=== PATIENT | female | born 1970 | race Caucasian/White ===

== ENCOUNTER → 2017-04-02 | Outpatient (CLI) | payer OTHER | LOC: BMCIMAGING 15:52 | PROVIDERS: ATTEND Orthopaedic Surgery Orthopaedic Surgery of the Spine | DX: M89.38 Hypertrophy of bone, other site (principal); M48.06 Spinal stenosis, lumbar region ==

== ENCOUNTER 2017-04-12 08:27 | Day surgery (SDC) | payer OTHER ==
--- NOTE | 2017-04-11 14:00 | GHP ---
[f rep st] PREOP HISTORY AND PHYSICAL DATE OF ADMISSION: 04/12/2017 HISTORY OF PRESENT ILLNESS: The patient is a pleasant 46-year-old woman referred to me for a gradua l onset of right lower extremity pain that began in September of this year. The pain mainly radiates from her right buttock to the right lateral leg, and then to the lateral right. She also has pares thesias in the same distribution. Flexion as well as Valsalva-type of maneuvers typically worsen he r symptoms. 100% of her pain is referable to the right lower extremity. On a visual analog scale o f 1 to 10, she rates her daily pain a 2 to a 6. The patient denies any loss of bowel or bladder con trol. Treatments have included an epidural steroid injection, Medrol Dosepak, anti-inflammatories, physical therapy, and traction. SOCIAL HISTORY: Negative for tobacco and positive for social use of alcohol. 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 FAMILY HISTORY: Negative. PAST MEDICAL HISTORY: The patient has partial complex seizures, Graves disease, causing hypothyroid ism, and asthma. PAST SURGICAL HISTORY: Exploratory laparotomy for ectopic pregnancies, bilateral salpingectomies, a nd LASIK surgery. ALLERGIES TO MEDICATIONS: Iodine contrast. MEDICATIONS: Synthroid, Dulera, Lamictal. PHYSICAL EXAM: GENERAL: Patient is 5 feet 2 inches tall, and weighs 130 pounds. She is alert and oriented x3. NEUROLOGIC: Shows strength of bilateral lower extremities to be 5/5 throughout. Light touch is dim inished in the right lateral leg and lateral foot. Patellar reflexes are bilaterally 3/4. Achilles reflexes are bilaterally 2/4. Straight-leg raising is positive on the right and negative on the le ft. She is tender to palpation slightly to the right of midline at L4-5 and L5-S1, as well as in th e right sciatic notch. RADIOGRAPHIC STUDIES: MRI of the lumbar spine shows minimal degenerative disk disease at L3-4. At L4-5, she has moderate degenerative disk disease, with modic vertebral endplate changes, and a centr al disk herniation causing stenosis. At L5-S1, she has a central annular tear. IMPRESSIONS: 1. Central and right L4-5 disk herniation, with moderate central stenosis. 2. Right L5 radiculopathy. 3. Right S1 radiculitis. PLAN: The patient will undergo a right L4-5 microdiskectomy. Potential risks, benefits, possible c omplications have been thoroughly discussed with the patient including, but not limited to, dural te ar with CSF leak, meningitis, nerve root injury, partial or complete paralysis, infection, recurrent disk herniation, need for further surgery including a fusion, loss of bowel or bladder control, DVT , PE, pneumonia, stroke, heart attack, hemorrhage, blindness, and . Patient's questions have b een answered thoroughly. She will be n.p.o. after midnight tonight. Surgery will be performed as a n outpatient procedure. Copy requested to: Pre-Surgery Testing /[id number]/MODL
[~2017-04-12 08:27] MED LIST: ceFAZolin 2 GM/DEXTROSE 100 ML IV ONE
[2017-04-12] MEDS ORDERED: LR 1,000 ML IV ONE (08:47)
[2017-04-12 08:57] VITALS: PULSE 67
[2017-04-12] MEDS ORDERED: THROMBIN (BOVINE) 20,000 UNIT VIAL TP ONE (09:06)
[2017-04-12] MEDS ORDERED: THROMBIN (BOVINE) 5,000 UNIT VIAL TP ONE (09:06)
[2017-04-12] MEDS ORDERED: BACITRACIN 50,000 UNITS/10 ML SYR IRR ONE (09:06)
[2017-04-12] MEDS ORDERED: DEXAMETHASONE 10 MG/ML VIAL ONE (09:06)
[2017-04-12] MEDS ORDERED: methylPREDNISolone SOD SUCC 125 MG/2 ML VIAL ONE (09:06)
[2017-04-12] MEDS ORDERED: BUPIVACAINE/EPI 0.25% 30 ML SDV ONE (09:06)
[2017-04-12] MEDS ORDERED: LIDOCAINE 1% 2 ML INJ ID PRN (09:44)
[2017-04-12] MEDS ORDERED: LIDOCAINE 1% 2 ML INJ ONE (09:45)
[2017-04-12] MEDS ORDERED: MIDAZOLAM 2 MG/2 ML VIAL IVP ONE (09:53)
[2017-04-12] MEDS ORDERED: MIDAZOLAM 2 MG/2 ML VIAL ONE (09:54)
--- NOTE | 2017-04-12 09:55 | PDHPUP ---
History & Physical Update H&P update statement: This history and physical update is based on an assessment of the patient which was completed after admission or registration (within 24 hours), but prior to the surgery/procedure. H&P update: H&P reviewed & patient examined, no change in patient's condition since H&P completed
--- NOTE | 2017-04-12 09:58 | PDANEPAE ---
ANE History of Present Illness Microdiscectomy right 4to 5 ANE Past Medical History - Cardiovascular History Hx Hypertension: No Hx Arrhythmias: No Hx Chest Pain: No Hx Coronary Artery / Peripheral Vascular Disease: No Hx CHF / Valvular Disease: No Hx Palpitations: No - Pulmonary History Hx COPD: No Hx Asthma/Reactive Airway Disease: Yes Hx Recent Upper Respiratory Infection: No Hx Oxygen in Use at Home: No Hx Sleep Apnea: No Sleep Apnea Screening Result - Last Documented: Negative Pulmonary History Comment: uses Dulera inhaler for asthma-rare use of Albuterol. - Neurologic History Hx Cerebrovascular Accident: No Hx Seizures: Yes Hx Dementia: No Neurologic History Comment: partial complex seizures- well controlled w/ Lamictal - Endocrine History Hx Diabetes: No Hypothyroid: No Hyperthyroid: No Endocrine History Comment: hypothyroid - Renal History Hx Renal Disorders: No - Liver History Hx Hepatic Disorders: No - Neurological & Psychiatric Hx Hx Neurological and Psychiatric Disorders: Yes Neurological / Psychiatric History Comment: R low back pain w/pain, numbness, tingling radiating down outside of R leg - Cancer History Hx Cancer: No - Congenital Disorder History Hx Congenital Disorders: No - GI History Hx Gastrointestinal Disorders: Yes Gastrointestinal History Comment: gluten intollerant due to Celiac disease. - Chronic Pain History Chronic Pain: Yes (back/R leg) - Surgical History Prior Surgeries: explor lap x2 - 2000,2001 ANE Review of Systems - Exercise capacity METS (RN): 4 METS ANE Patient History - Allergies Allergies/Adverse Reactions: gluten Allergy (Verified 04/04/17 15:56) Other-Enter Comments Iodinated Contrast- Oral and IV Dye Allergy (Verified 04/04/17 15:55) Hives - Home Medications Home Medications: Dulera 100 Mcg/5 Mcg Inhaler 04/04/17 [Last Taken 04/12/17 06:30] LaMICtal 04/04/17 [Last Taken 04/12/17 06:30] Synthroid 04/04/17 [Last Taken 04/12/17 06:30] - NPO status NPO Since - Liquids (Date): 04/12/17 NPO Since - Liquids (Time): 06:00 NPO Since - Solids (Date): 04/11/17 NPO Since - Solids (Time): 19:00 - Anes Hx Anes Hx: no prior problems - Smoking Hx Smoking Status: Never smoked - Alcohol Use Alcohol Use: Occasionally - Family Anes Hx Family Anes Hx: none ANE Labs/Vital Signs - Vital Signs Blood Pressure: 127/67 Heart Rate: 67 Respiratory Rate: 16 O2 Sat (%): 96 Height: 153.67 cm Weight: 58.967 kg ANE Physical Exam - Airway Mallampati Score: Class 1 Mouth exam: normal dental/mouth exam - Pulmonary Pulmonary: no respiratory distress - Cardiovascular Cardiovascular: regular rate and rhythym - ASA Status ASA Status: II ANE Anesthesia Plan Anesthesia Plan: general endotracheal anesthesia
[2017-04-12] MEDS ORDERED: HYDROmorphONE/DILAUDID 2 MG/ML INJ ONE (10:03)
[2017-04-12] MEDS ORDERED: fentaNYL 100 MCG/2 ML INJ ONE ×3 (10:04→12:18)
[2017-04-12] MEDS ORDERED: PROPOFOL/EMULSION 500 MG/50 ML BOTTLE IV ONE (10:04)
[2017-04-12] MEDS ORDERED: PROPOFOL 200 MG/20 ML VIAL ONE (10:04)
[2017-04-12] MEDS ORDERED: diphenhydrAMINE 25 MG CAP PO PRN (10:14)
[2017-04-12] MEDS ORDERED: oxyCODONE IR 5 MG TAB PO PRN (10:14)
[2017-04-12] MEDS ORDERED: ONDANSETRON DISINTEGRATING 4 MG TAB PO PRN (10:14)
[2017-04-12] MEDS ORDERED: ONDANSETRON 4 MG/2 ML VIAL IVP PRN ×2 (10:14→11:24)
[2017-04-12] MEDS ORDERED: NS 1,000 ML IV SCH (10:15)
[2017-04-12] MEDS ORDERED: HYDROmorphONE/DILAUDID 1 MG/ML SYR IVP PRN ×2 (10:19→11:24)
[2017-04-12] MEDS ORDERED: HYDROCODONE/APAP 5/325 TAB PO PRN (10:19)
[2017-04-12] MEDS ORDERED: ROCURONIUM 50 MG/5 ML VIAL ONE (10:43)
[2017-04-12] MEDS ORDERED: DEXAMETHASONE 4 MG/ML VIAL ONE ×3 (10:43)
[2017-04-12] MEDS ORDERED: GLYCOPYRROLATE 0.2 MG/1 ML VIAL ONE (10:44)
[2017-04-12] MEDS ORDERED: MEPERIDINE 25 MG/ML SYR IVP PRN (11:24)
[2017-04-12] MEDS ORDERED: NALOXONE HCL 0.4 MG/ML INJ IVP PRN (11:24)
[2017-04-12] MEDS ORDERED: D5W LR 500 ML IV PRN (11:24)
[2017-04-12] MEDS ORDERED: ONDANSETRON 4 MG/2 ML VIAL ONE (11:29)
--- NOTE | 2017-04-12 11:41 | POSTOPPROG ---
Post Op Note Date of Operation: 04/12/17 Surgeon: Francesca Cruz Cold Patcher: Chloé Mathews SA Anesthesiologist: MD Adonis Anesthesia: GET(General Endotracheal) Pre-op Diagnosis: Right L4-5 HNP and sciatica Post-op Diagnosis: same Indication: RLE pain Procedure: Right L4-5 microdiscectomy Findings: sequestered R/central L4-5 HNP Inf/Abcess present in the surg proc area at time of surgery?: No Depth: Deep Incisional (Fascial) EBL: 10 cc Complications: None. No permanent changes in SSEPs and EMGs
[2017-04-12] MEDS: fentaNYL 100 MCG/2 ML INJ IVP PRN ×2 (12:26→12:34)
[2017-04-12 12:53] VITALS: TEMP 96.8
[2017-04-12] MEDS ORDERED: ACETAMINOPHEN 500 MG TAB PO SCH (14:00)
[2017-04-12 14:20] VITALS: BP 96/57; RESP 13; O2SAT 100
--- NOTE | 2017-04-13 14:55 | POSTANESTH ---
Post Anesthetic Evaluation Cardiovascular Status: Normal, Stable Respiratory Status: Normal, Stable Level of Consciousness/Mental Status: Can Participate in Eval Pain Control: Adequate, Prn Tx Ordered Nausea/Vomiting Control: Adequate, Prn Tx Ordered Complications Possibly Related to Anesthesia: None Noted
--- NOTE | 2017-04-14 20:25 | GOP ---
[f rep st] OPERATIVE REPORT DATE OF OPERATION: 04/12/2017 SURGEON: Francesca De La Rosa MD WELDER GUN: Ton Mathews SA ANESTHESIA: General endotracheal intubation. ANESTHESIOLOGIST: Anabel Lamb MD. PREOPERATIVE DIAGNOSIS: 1. Central and right-sided L4-5 disk herniation with moderate stenosis. 2. Right L5 radiculopathy. 3. Right S1 radiculitis. POSTOPERATIVE DIAGNOSIS: 1. Central and right-sided L4-5 disk herniation with moderate stenosis. 2. Right L5 radiculopathy. 3. Right S1 radiculitis. PROCEDURE PERFORMED: Right L4-L5 microdiskectomy and placement of lumbar epidural steroid injection for postoperative anti-inflammatory effect. FINDINGS: INDICATIONS: This patient is a pleasant 46-year-old woman who had a gradual onset of right lower ex tremity pain which has become daily and consistent since September of this year. Pain mainly begins in the right buttock and radiates to the lateral leg and lateral aspect of the right foot. Valsalva maneuvers do worsen her symptoms and flexion does as well. Currently 100% of her pain is referable to right lower extremity pain. Patient has tried a Medrol dose pack, anti-inflammatories, physical therapy, traction, and 1 epidural steroid injection. On MRI, she was found to have a central and r ight L4-5 disk herniation. She has elected to undergo surgery. No guarantees were given in regard to surgical outcome. Potential risks, benefits, and possible complications were thoroughly discusse d including, but not limited to, dural tear with CSF leak, meningitis, nerve root injury, partial or complete paralysis, infection, recurrent disk herniation, DVT, PE, pneumonia, stroke, heart attack, hemorrhage, blindness, and . DESCRIPTION OF PROCEDURE: After obtaining both written and verbal consent from the patient, she was brought to the operating room where she underwent a general endotracheal DICTATION ENDS HERE /[id number]/MODL
== END 2017-04-12 16:05 | disposition home or self-care (01) ==
LOC: FSGY 08:27
PROVIDERS: ATTEND Orthopaedic Surgery Orthopaedic Surgery of the Spine
PROC: 0SB20ZZ Excision of Lumbar Vertebral Disc, Open Approach (ICD-10-PCS; principal; 2017-04-12 08:15)
DX: M51.16 Intervertebral disc disorders with radiculopathy, lumbar region (principal); M48.06 Spinal stenosis, lumbar region
CPT/HCPCS: J0690; J1100; J1170; J1200; J2250; J2405; J2704; J3010

== ENCOUNTER → 2017-11-09 | Outpatient (CLI) | payer OTHER | LOC: BMCIMAGING 14:42 | PROVIDERS: ATTEND Internal Medicine | DX: Z12.31 Encounter for screening mammogram for malignant neoplasm of breast (principal) ==

== ENCOUNTER → 2017-12-10 | Outpatient (CLI) | payer OTHER | LOC: BMCIMAGING 12:45 | PROVIDERS: ATTEND Obstetrics & Gynecology | DX: N88.8 Other specified noninflammatory disorders of cervix uteri (principal); N83.201 Unspecified ovarian cyst, right side ==